=== PATIENT | male | born 1995 | race African-American/Black ===

== ENCOUNTER 2019-04-05 11:26 | Emergency (ER) | payer SELFPAY ==
[~2019-04-05] VITALS: Ht 185.4 cm; Wt 79.4 kg
--- NOTE | 2019-04-05 11:52 | NUR ---
ED Nurse Note: A/OX4. REPORTS OF HAVING CHRONIC NECK PAIN AND HE RAN OUT OF TRAMADOL. NO TRAUMA NOTED AND ABLE TO MOVE NECK WITH FULL MOTION.
[2019-04-05 11:55] VITALS: BP 112/75
[2019-04-05] MEDS ORDERED: Ketorolac 30mg Inj IM ONE (12:15)
[2019-04-05] MEDS ORDERED: IBU800 MG PO (12:21)
--- NOTE | 2019-04-05 12:21 | Emergency Room Report ---
History of Present Illness General Chief Complaint: Medication Refill Source: Patient Present Illness HPI 24-year-old male with history of chronic neck pain here requesting medication refill for tramadol. Patient reports that he is from [place] and he has not been to his primary care or his pain management in the long time. Denies any new injury or fall. When told that cannot get any tramadol as he is in the care of pain management he asked for gabapentin instead. However does not insist on getting controlled substance. Agrees to take ibuprofen. Denies other injuries, chest pain, shortness of breath, palpitation, no other associated symptoms. Allergies: Coded Allergies: No Known Allergies (Unverified , 04/05/19) Patient History Past Medical History: see triage record Past Surgical History: unable to obtain Pertinent Family History: none Immunizations: UTD Reviewed Nursing Documentation: PMH: Agreed; PSxH: Agreed Nursing Documentation-PMH Past Medical History: No History, Except For Review of Systems All Other Systems: negative except mentioned in HPI Physical Exam Vital Signs Date Time Temp Pulse Resp B/P (MAP) Pulse Ox O2 Delivery O2 Flow Rate FiO2 04/05/19 11:42 98.2 79 16 112/75 (87) 97 Room Air Sp02 EP Interpretation: reviewed, normal General Appearance: no apparent distress, alert, GCS 15, non-toxic Head: normocephalic, atraumatic Eyes: bilateral eye normal inspection, bilateral eye PERRL ENT: hearing grossly normal, normal pharynx, no angioedema, normal voice Neck: full range of motion, supple/symm/no masses Respiratory: chest non-tender, lungs clear, normal breath sounds, speaking full sentences Cardiovascular #1: regular rate, rhythm, no edema Gastrointestinal: normal bowel sounds, non tender, soft, non-distended, no guarding, no rebound Genitourinary: normal inspection, no CVA tenderness Musculoskeletal: back normal, decreased range of motion Neurologic: alert, motor strength/tone normal, oriented x3, sensory intact, responsive, speech normal Psychiatric: judgement/insight normal, memory normal, mood/affect normal, no suicidal/homicidal ideation Skin: no rash Lymphatic: no adenopathy Medical Decision Making PA Attestation All my diagnosis and treatment plans were reviewed ad discussed with my supervising physician Dr. Barone Diagnostic Impression: Primary Impression: Chronic pain ER Course 24-year-old male with history of chronic neck pain here requesting medication refill for tramadol. Patient reports that he is from [place] and he has not been to his primary care or his pain management in the long time. Denies any new injury or fall. When told that cannot get any tramadol as he is in the care of pain management he asked for gabapentin instead. However does not insist on getting controlled substance. Agrees to take ibuprofen. Denies other injuries, chest pain, shortness of breath, palpitation, no other associated symptoms. Ddx considered but are not limited to: cervical spine fracture, cervical spine strain, cervical spine sprain, carotid artery disease Vital signs: are WNL, pt. is afebrile H&PE are most consistent with: chronic neck pain ORDERS: Ibuprofen ED INTERVENTIONS: Toradol DISCHARGE: At this time pt. is stable for d/c to home. Will provide printed patient care instructions, and any necessary prescriptions. Care plan and follow up instructions have been discussed with the patient prior to discharge. Last Vital Signs Date Time Temp Pulse Resp B/P (MAP) Pulse Ox O2 Delivery O2 Flow Rate FiO2 04/05/19 11:42 98.2 79 16 112/75 (87) 97 Room Air Disposition: HOME, SELF-CARE Condition: Stable Scripts Ibuprofen (Ibu) 800 Mg Tablet 800 MG PO TID, #30 TAB Prov: Rolando Veláqsuez 04/05/19 Patient Instructions: Chronic Pain Additional Instructions: Establish pain management [facility], we cannot give you any narcotics at this time as your other pain management and you need to follow-up with pain management due to chronic pain Rolando Velásquez Apr 05, 2019 12:21
[2019-04-05 12:38] VITALS: BP 112/75
--- NOTE | 2019-04-05 12:38 | NUR ---
ED Nurse Note: Pt cleared by health care Provider for discharge. DC instructions/prescription was given and explained to pt and verbalized understanding of teachings. All medical deviecs such as ID band removed. Pt is AAO x4, ambulatory and left with all personal belongings.
== END 2019-04-05 12:39 | disposition home or self-care (01) ==
LOC: EMR 12:20
DX: M54.2 Cervicalgia (principal); G89.29 Other chronic pain
CPT/HCPCS: 96372; 99283; J1885